=== PATIENT | male | born 1980 | race Caucasian/White ===

== ENCOUNTER 2016-12-19 19:47 | Emergency (ER) | payer OTHER ==
[~2016-12-19] VITALS: Ht 172.7 cm; Wt 85.5 kg
[2016-12-19 20:15] VITALS: BP 126/54
== END 2016-12-19 20:24 | disposition left against medical advice (07) ==
LOC: EME 19:47
DX: S99.911A Unspecified injury of right ankle, initial encounter (principal); Z53.21 Procedure and treatment not carried out due to patient leaving prior to being seen by health care provider